=== PATIENT | female | born 1945 | race Caucasian/White ===

== ENCOUNTER 2017-09-16 08:30 | Day surgery (SDC) | payer MEDICARE ==
[~2017-09-16] VITALS: Ht 152.4 cm; Wt 44.0 kg
[2017-09-16 08:45] VITALS: BP 111/67
[2017-09-16] MEDS ORDERED: famotidine 20mg tablet PO ONE (09:15)
[2017-09-16] MEDS ORDERED: VANCOMYCIN INJ 1000 MG in NORMAL SALINE 250ml IV.SOLN IV ONE (09:15)
[2017-09-16] MEDS ORDERED: ringers solution, lacted 1,000 ML IV SCH ×2 (09:15→10:59)
[2017-09-16] MEDS ORDERED: LISI1TAB9 (09:22)
[2017-09-16] MEDS ORDERED: CEPH500C2 PO (09:22)
[2017-09-16] MEDS ORDERED: LIDOcaine 1% (10mg/ml) 2ml vial ONE (09:29)
[2017-09-16 10:09] LABS: BASOPHILS % (AUTO) 0.2 % (0-1); EOSINOPHILS # (AUTO) 0.2 X10'3 (0-0.9); EOSINOPHILS % (AUTO) 2.5 % (0-6); HEMATOCRIT 36.1 % (35.0-45.0); HEMOGLOBIN 12.3 g/dl (12.0-16.0); LYMPHOCYTES # (AUTO) 0.7 X10'3 (1.1-4.8); LYMPHOCYTES % (AUTO) 7.5 % (21-51); MEAN CORPUSCULAR HEMOGLOBIN 31.4 PG (27.0-31.0); MEAN CORPUSCULAR VOLUME 92.5 FL (78-98); MEAN PLATELET VOLUME 7.2 FL (7.4-10.4); MONOCYTES # (AUTO) 0.8 X10'3 (0-0.9); NEUTROPHILS # (AUTO) 7.3 X10'3 (1.8-7.7); NEUTROPHILS % (AUTO) 80.8 % (42-75); PLATELET COUNT 287 X10'3 (140-440); RED CELL DISTRIBUTION WIDTH 13.2 % (11.5-14.5)
[2017-09-16 10:40] LABS: ALANINE AMINOTRANSFERASE 32 U/L (12-78); ALBUMIN 3.7 G/DL (3.4-5.0); ALBUMIN/GLOBULIN RATIO 1.1 (1.1-1.5); ALKALINE PHOSPHATASE 97 IU/L (46-116); ANION GAP 9 (8-16); ASPARTATE AMINO TRANSFERASE 29 U/L (10-37); BILIRUBIN,TOTAL 0.5 MG/DL (0.1-1.0); BLOOD UREA NITROGEN 28 MG/DL (7-18); BUN/CREATININE RATIO 25.5 (6.6-38.0); CALCIUM 9.5 MG/DL (8.5-10.1); CHLORIDE 103 MMOL/L (99-107); GLUCOSE 91 MG/DL (70-104); POTASSIUM 3.7 MMOL/L (3.5-5.1); SODIUM 142 MMOL/L (135-145); TOTAL CARBON DIOXIDE 30.4 MMOL/L (24-32); TOTAL PROTEIN 7.2 G/DL (6.4-8.2); eGFR 49 ML/MIN
[2017-09-16] MEDS ORDERED: meperidine/PF 25mg/ml syringe IV PRN ×2 (11:00)
[2017-09-16] MEDS ORDERED: ondansetron/PF 4mg/2ml inj IV PRN (11:00)
[2017-09-16] MEDS ORDERED: meperidine/PF 25mg/ml syringe IV ONE (11:00)
[2017-09-16] MEDS ORDERED: morphine 5 MG/ML injection IV PRN ×2 (11:00)
[2017-09-16] MEDS ORDERED: proCHLORperazine 10 MG/2 ml inj IV PRN (11:00)
[2017-09-16] MEDS ORDERED: sevoflurane 250ml liquid IH ONE (11:02)
[2017-09-16] MEDS ORDERED: ePHEDrine 50MG/ML INJ. ONE (11:02)
[2017-09-16] MEDS ORDERED: BUPIVAcaine/PF 2.5 mg/ml (0.25%) 30ml vial IJ ONE (11:05)
[2017-09-16] MEDS ORDERED: fentaNYL/PF 50MCG/1 ML 2ML syringe ONE (11:10)
[2017-09-16] MEDS ORDERED: midazolam 2 mg/2 ml injection ONE (11:10)
[2017-09-16] MEDS ORDERED: ondansetron/PF 4mg/2ml inj ONE (11:37)
[2017-09-16] MEDS ORDERED: LIDOcaine 1%/PF (10mg/ml) 5ml vial ONE (11:37)
[2017-09-16] MEDS ORDERED: propofol inj 20 ML IV ONE (11:37)
[2017-09-16] MEDS ORDERED: dexamethasone sod phosphate 4mg/ml inj. ONE (11:37)
[2017-09-16 12:05] VITALS: BP 90/46
[2017-09-16 12:15] VITALS: BP 94/59
[2017-09-16 12:25] VITALS: BP 92/65
[2017-09-16 12:35] VITALS: BP 99/63
[2017-09-16 12:45] VITALS: BP 101/65
== END 2017-09-16 12:55 | disposition home or self-care (01) ==
LOC: PAS 08:30
PROVIDERS: ATTEND Orthopaedic Surgery Hand Surgery
DX: T81.4XXA Infection following a procedure, initial encounter (principal); L03.011 Cellulitis of right finger; Y83.8 Other surgical procedures as the cause of abnormal reaction of the patient, or of later complication, without mention of misadventure at the time of the procedure; Y92.89 Other specified places as the place of occurrence of the external cause
CPT/HCPCS: 10180; 36415; 80053; 85025; 87070; 87075; 87077; 87186; 93005; A6222; A6449; J1100; J2001; J2250; J2405; J2704; J3010; J3370; J3490; J7120; A7000